=== PATIENT | female | born 1985 | race African-American/Black ===

== ENCOUNTER 2016-09-03 09:05 | Emergency (ER) | payer OTHER ==
[~2016-09-03] VITALS: Ht 172.7 cm; Wt 105.5 kg
[~2016-09-03 09:05] MED LIST: AMOX500T PO; CIPR0.3S RIGHT EAR; HYDR50 PO; NAPR500 PO; Z.0.NO CURRENT MEDS
[2016-09-03 09:07] VITALS: BP 130/78; PULSE 96; RESP 18; TEMP 98.7; O2SAT 100
--- NOTE | 2016-09-03 10:52 | PD ---
HPI Chief Complaint: Back/ Neck Pain or Injury Time Seen by Provider: 10:49 Travel History International Travel<30 days: No Contact w/Intl Traveler<30days: No Traveled to known affect area: No History of Present Illness HPI Patient comes in for evaluation of low back pain ongoing for 3 days. Patient denies any known trauma, loss change in bowel or bladder, fevers, drug use, numbness or tingling anywhere, vaginal discharge, , or abdominal pain. Patient states she's been taking Tylenol and using [id number] muscle cream with minimal relief her symptoms. Pain is worse with walking and certain movement. Patient states she may have injured it while lifting up one of her kids. [facility] Past Medical History Medical History: Denies Significant Hx ?: Not Past Surgical History Section: Yes Social History Alcohol Use: Yes Tobacco Use: Yes Substance Use: No Allergies-Medications (Allergen,Severity, Reaction): Coded Allergies: No Known Allergies (Verified , 09/03/16) Reported Meds & Prescriptions Reported Meds & Active Scripts Active Robaxin (Methocarbamol) 750 Mg Tab 750 Mg PO Q8HR PRN Naprosyn (Naproxen) 500 Mg Tab 500 Mg PO Q12HR PRN Review of Systems Except as stated in HPI: all other systems reviewed are Neg Physical Exam Narrative GENERAL: Well-developed, overly nourished, in no acute distress, and non-ill appearing. SKIN: Warm and dry. HEAD: Atraumatic. Normocephalic. EYES: Pupils equal and round. EOMI. No scleral icterus. No injection or drainage. ENT: No nasal bleeding or discharge. Mucous membranes pink and moist. NECK: Trachea midline. Supple. No nuclear rigidity. CARDIOVASCULAR: No pedal edema. RESPIRATORY: No accessory muscle use. No respiratory distress. GASTROINTESTINAL: Abdomen soft, non-tender, nondistended. Hepatic and splenic margins not palpable. No CVA tenderness. No pulsatile mass. MUSCULOSKELETAL: No obvious deformities. No clubbing. No cyanosis. No edema. Full range of motion. Patient is able to bear full weight and ambulate normally. There is no tenderness crepitus over midline lumbar spine. Patient reports tenderness to the paravertebral spinal muscles on the right. Straight leg test is negative bilaterally. NEUROLOGICAL: Awake and alert. No obvious cranial nerve deficits. Motor grossly within normal limits. Normal speech. PSYCHIATRIC: Appropriate mood and affect; insight and judgment normal. Data Data Last Documented VS Vital Signs Date Time Temp Pulse Resp B/P Pulse Ox O2 Delivery O2 Flow Rate FiO2 09/03/16 09:07 98.7 96 18 130/78 100 Room Air MDM Medical Decision Making Medical Screen Exam Complete: Yes Emergency Medical Condition: Yes Differential Diagnosis Fracture, strain, contusion, other Narrative Course The patient presented complaining of back pain. There was no history of recent fall or trauma. There was no evidence to support genitourinary etiology. There is also no evidence to suggest vascular pathology such as AAA dissection. No fevers or other evidence to suspect infectious processes, abscess, osteomyelitis etc. The patients neurological exam is normal with normal motor and sensory. There is no saddle paresthesias reported and no bowel or bladder incontinence or retention. I suspect the pain is mechanical in nature. Clinical suspicion, plan of care and management was discussed with the patient. The patient was instructed to follow up with their health care provider. The patient was also instructed to return if the pain worsened, changed, or developed weakness or bowel or bladder trouble. The patient agreed with plan. Patient in no obvious distress upon re-evaluation. Patient was asked if they wanted to speak to my attending, which the patient did not wish to do at this time. Any questions/concerns in reference to patient diagnosis/condition discussed and clarified prior to patient's discharge. Reinforced sheer importance of close follow up with patient's primary physician or primary care clinic. Instructed patient to return to ED immediately, if symptoms return/ worsen. Pt showed understanding of above instructions. Further instructions and recommendations were detailed in discharge paperwork. Pt ambulated without difficulty out of ED at discharge. Diagnosis Primary Impression: Low back strain Qualified Code: S39.012A - Low back strain, initial encounter Patient Instructions: General Instructions, Low Back Strain (ED) Additional Instructions: Follow-up with your primary care physician and/or orthopedics in 3-5 days for reevaluation. Take all medication as prescribed. Return to the emergency department if symptoms get worse. Med/Other Pt SpecificInfo: Prescription(s) given Scripts Methocarbamol (Robaxin)750 Mg [id number] Mg PO Q8HR PRN (MUSCLE PAIN) #15 TAB Ref 0 Prov:Mukul Contreras MD 09/03/16 Naproxen (Naprosyn)500 Mg [id number] Mg PO Q12HR PRN (PAIN SCALE 1 TO 10) #14 TAB Ref 0 Prov:Mukul Contreras MD 09/03/16 Disposition: 01 DISCHARGE HOME Condition: Stable Mauricio Hogan Sep 03, 2016 10:52
[2016-09-03] MEDS ORDERED: NAPR500 PO (10:54)
[2016-09-03] MEDS ORDERED: ROBA750T PO (10:54)
== END 2016-09-03 11:11 | disposition home or self-care (01) ==
LOC: NEPB 09:05
DX: S39.012A Strain of muscle, fascia and tendon of lower back, initial encounter (principal); Z72.0 Tobacco use; F10.10 Alcohol abuse, uncomplicated; X58.XXXA Exposure to other specified factors, initial encounter; Y93.9 Activity, unspecified; Y99.9 Unspecified external cause status
CPT/HCPCS: 99283

== ENCOUNTER 2016-09-16 08:56 | Emergency (ER) | payer OTHER ==
[~2016-09-16] VITALS: Ht 170.2 cm; Wt 105.5 kg
[~2016-09-16 08:56] MED LIST changes: -AMOX500T PO; -CIPR0.3S RIGHT EAR; -HYDR50 PO; +ROBA750T PO; -Z.0.NO CURRENT MEDS
[2016-09-16 08:58] VITALS: BP 134/78; PULSE 99; RESP 20; TEMP 98.1; O2SAT 100
[2016-09-16] MEDS ORDERED: IBUP800T23 PO (09:25)
[2016-09-16] MEDS ORDERED: MOME17I EACH NARE (09:25)
[2016-09-16] MEDS ORDERED: AMOX500T PO (09:25)
--- NOTE | 2016-09-16 09:27 | PD ---
HPI Chief Complaint: ENT Complaint Time Seen by Provider: 09:21 Travel History International Travel<30 days: No Contact w/Intl Traveler<30days: No Traveled to known affect area: No History of Present Illness HPI 30-year-old female presents to the emergency Department with complaint of nasal congestion, cough, bilateral ear congestion since yesterday. Reports right ear pain and both of her ears feel c;logged. Has tried cleaning her ears out with Q -tips and sebastián pins with no relief of symptoms. Denies fever, chills, nausea, vomiting. Has taken Tylenol with minimal relief. No known aggravating or relieving factors. No known allergies. No modifying factors or associated signs and symptoms. PFSH Past Surgical History Section: Yes Social History Alcohol Use: Yes Tobacco Use: Yes Substance Use: No Allergies-Medications (Allergen,Severity, Reaction): Coded Allergies: No Known Allergies (Verified , 09/16/16) Reported Meds & Prescriptions Reported Meds & Active Scripts Active Amoxicillin 500 Mg Tab 500 Mg PO BID 10 Days Ibuprofen 800 Mg Tab 800 Mg PO Q6HR PRN Nasonex Nasal [place] (Mometasone Furoate) 50 Mcg/Act Naspr 2 [place] EACH NARE DAILY PRN Review of Systems Except as stated in HPI: all other systems reviewed are Neg Physical Exam Narrative GENERAL: Well-nourished, well-developed female patient, in no acute distress; afebrile, nontoxic-appearing SKIN: Warm and dry. No rash. HEAD: Atraumatic. Normocephalic. EYES: Pupils equal and round. No scleral icterus. No injection or drainage. EARS: Bilateral pinnae and external canals appear within normal limits. Right tympanic membranes with erythema, loss of landmarks, dullness; without perforation. Left tympanic membrane without erythema, loss of landmarks, dullness, perforation. ENT: Mucosa pink and moist. Oropharynx without erythema, edema or exudates. No uvular edema. No uvular, palatal, or tonsillar deviation. Airway patent. NECK: Trachea midline. No lymphadenopathy. CARDIOVASCULAR: Regular rate and rhythm. No murmur appreciated. RESPIRATORY: No accessory muscle use. Clear to auscultation. Breath sounds equal bilaterally. GASTROINTESTINAL: Rounded. MUSCULOSKELETAL: No obvious deformities. No clubbing. No cyanosis. No edema. NEUROLOGICAL: Awake and alert. Oriented 3. No obvious cranial nerve deficits. Motor grossly within normal limits. Normal speech. Moves all extremities. 5/5 strength to all extremities. PSYCHIATRIC: Appropriate mood and affect; insight and judgment normal. Data Data Last Documented VS Vital Signs Date Time Temp Pulse Resp B/P Pulse Ox O2 Delivery O2 Flow Rate FiO2 09/16/16 08:58 98.1 99 20 134/78 100 Room Air MDM Medical Decision Making Medical Screen Exam Complete: Yes Emergency Medical Condition: Yes Medical Record Reviewed: Yes Differential Diagnosis otitis media, otitis externa, cerumen impaction, viral illness Narrative Course 30-year-old female physical exam consistent with right otitis media. Afebrile and nontoxic-appearing. Patient denies fever, chills, nausea, vomiting. Amoxicillin, Nasonex, ibuprofen prescribed for home. Patient is medically cleared and stable for discharge. Discussed reasons to return to the emergency department. Instructed patient to follow up with primary care provider. Patient agrees with treatment plan. The patients vital signs are stable and the patient is stable for outpatient follow-up and treatment. Patient discharged home, stable and in no acute distress. Diagnosis Primary Impression: Right otitis media Qualified Code: H66.91 - Right otitis media, unspecified chronicity, unspecified otitis media type Referrals: Primary Care Physician Patient Instructions: General Instructions, Otitis Media (ED), Safe Use of Cough and Cold Medicines (ED) Departure Forms: Tests/Procedures, Work Release Enter return to work date: Sep 17, 2016 Additional Instructions: Take antibiotics as prescribed and complete full course Ibuprofen or Tylenol as directed and as needed to reduce pain and fever [id number] decongestants or antihistamines as directed and as needed for symptom management Avoid getting water in the ears Do not put anything in the ears Follow-up with your purchasing manager/sales Return to the emergency department immediately with worsening of symptoms Med/Other Pt SpecificInfo: Prescription(s) given Scripts Amoxicillin 500 Mg [id number] Mg PO BID 10 Days Ref 0 Prov:Jess Menezes ENGINE MONITOR 09/16/16 Ibuprofen 800 Mg [id number] Mg PO Q6HR PRN (PAIN) #30 TAB Ref 0 Prov:Jess Menezes ENGINE MONITOR 09/16/16 Mometasone Nasal [place] (Nasonex Nasal [place])50 Mcg/Act Naspr2 [place] EACH NARE DAILY PRN (NASAL CONGESTION) #1 BOTTLE Ref 0 Prov:Jess Menezes 09/16/16 Disposition: 01 DISCHARGE HOME Condition: Stable Jess Menezes Sep 16, 2016 09:27
== END 2016-09-16 09:49 | disposition home or self-care (01) ==
LOC: NEPB 08:56
DX: H66.91 Otitis media, unspecified, right ear (principal); Z72.0 Tobacco use; F10.10 Alcohol abuse, uncomplicated
CPT/HCPCS: 99283